=== PATIENT | female | born 1950 | race Caucasian/White ===

== ENCOUNTER 2018-07-22 06:57 | Emergency (ER) | payer OTHER ==
[~2018-07-22] VITALS: Ht 152.4 cm; Wt 81.7 kg
[~2018-07-22 06:57] MED LIST: CEPH500 PO; HYDACE5 PO
== END 2018-07-22 08:29 | disposition home or self-care (01) ==
LOC: ER 06:57
DX: S01.111A Laceration without foreign body of right eyelid and periocular area, initial encounter (principal); S00.511A Abrasion of lip, initial encounter; W18.31XA Fall on same level due to stepping on an object, initial encounter
CPT/HCPCS: 12011; 90471; 90714; 99283-25